=== PATIENT | male | born 1945 | race Caucasian/White ===

== ENCOUNTER 2024-06-17 14:53 | Emergency (ER) | payer OTHER, MEDICARE, SELFPAY ==
[2024-06-17 14:56] VITALS: BP 171/98
[2024-06-17 15:27] VITALS: BP 137/92
[2024-06-17 15:46] LABS: ALT (SGPT) 26 U/L (0-50); AST (SGOT) 41 U/L (17-59); Albumin 4.7 g/dl (3.5-5.0); Alkaline Phosphatase 87 U/L (38-126); Blood Urea Nitrogen 17 mg/dl (9-20); Calcium 9.3 mg/dl (8.4-10.2); Carbon Dioxide 29 mmol/L (22-30); Chloride 97 mmol/L (98-107); Glucose 156 mg/dl (70-99); Lipase 43 U/L (23-300); Potassium 4.6 mmol/L (3.5-5.1); Sodium 137 mmol/L (135-145); Total Bilirubin 0.6 mg/dl (0.2-1.3); Total Protein 7.8 g/dl (6.3-8.2); eGFR > 60.00
[2024-06-17 15:49] LABS: % Basophils 0.2 % (0-2); % Eosinophils 0.2 % (0-6); % Immature Granulocytes 0.2 % (0-0.5); % Lymphocytes 8.8 % (20.5-51.1); % Monocytes 6.9 % (1.7-9.3); % Neutrophils 83.7 % (42.2-75.2); Absolute Lymphocytes 0.9 10^3/uL (1.2-3.4); Absolute Monocytes 0.7 10^3/uL (0.1-0.6); Absolute Neutrophils 8.3 10^3/uL (1.4-6.5); Hematocrit 42.4 % (39.0-52.0); Mean Corp Hgb Conc. 35.4 g/dL (33.0-37.0); Mean Corpuscular Volume 90.4 fL (80.0-94.0); Mean Platelet Volume 9.4 fL (7.4-10.4); Nucleated Red Blood Cells % 0 % (-); Platelet Count 275 10^3/uL (130-400); Red Blood Cell Count 4.69 10^6/uL (4.70-6.10); Red Cell Dist. Width 13.1 % (11.5-14.5); White Blood Cell Count 9.9 10^3/uL (4.8-10.8)
--- NOTE | 2024-06-17 15:58 | ED.GENMED ---
History of Present Illness
General
Chief Complaint: Abdominal Pain
Source: patient and spouse
Exam Limitations: none
Time Seen by Provider: 06/17/24 15:19
Nursing documentation reviewed up to this point in time: agreed with
History of Present Illness
History of Present Illness:
79-year-old male with past medical history of colon cancer status post right-sided partial colectomy at [facility] 4 years presenting to the emergency department today with concerns of left-sided abdominal pain with associated nausea vomiting chills.
Does have a known large hernia to the left side of abdominal wall that he claims felt hardened yesterday. Does have intermittent pain to the area but yesterday's was ongoing since yesterday evening. Patient chills denies any specific objective
fevers.
Past History
Past History
ED Past Medical History: None
ED Past Surgical History: None
Review of Systems
Review of Systems
Allergies reviewed?: Yes
All Other Systems: ROS reviewed and negative except as documented in HPI and ROS
Phy Exam
Physical Exam
Physical Exam:
GENERAL: Alert , in no apparent distress
EYE: pupils equal and reactive
NECK: Supple, no significant adenopathy.
ENT: o/p clr, mmm.
CARDIAC: Regular rate and rhythm .
LUNGS: Clear breath sounds bilaterally, no acute respiratory distress, no wheezes/rales/rhonchi
ABDOMEN: Soft, without focal tenderness, no r/g, no cvat
NEUROLOGICAL: Alert and oriented, no focal neuro deficits
SKIN: Warm and dry, skin intact.
MUSCULOSKELETAL: No edema, well perfused.
PSYCH: Normal and appropriate interaction.
Course
Orders/Labs/Results
Orders:
Orders
06/17/24 15:21
IV Insert/Care/Rem.- Treatment PRN
06/17/24 15:26
Complete Blood Count/With Diff Urgent
Comprehensive Metabolic Panel Urgent
Lipase Urgent
Urinalysis Reflex To Culture Urgent
Date Specimen was Collected: 06/17/24
Time Specimen was Collected: 15:21
Urine Microscopic Reflex Cult Urgent
06/17/24 15:36
CT Abd/pel W Iv And Oral Contr Urgent
Comment:
Reason For Exam: right colectomy, abd pain, anterior left abd herni
0.9% Sodium Chloride 1000 ml [Nss] 1,000 ml IV BOLUS
Iohexol [Omnipaque] See Protocol PO NOW STA
06/17/24 15:41
EKG [Electrocardiogram (*1)] Urgent
Reason for Study: Abdominal Pain
06/17/24 15:42
EKG- Treatment ONCE
06/17/24 21:19
Lactic Acid Urgent
Abnormal Lab Results
06/17/24
15:26
RBC 4.69 L 10^6/uL
(4.70-6.10)
MCH 32.0 H pg
(27.0-31.0)
Absolute Neuts (auto) 8.3 H 10^3/uL
(1.4-6.5)
Absolute Lymphs (auto) 0.9 L 10^3/uL
(1.2-3.4)
Absolute Monos (auto) 0.7 H 10^3/uL
(0.1-0.6)
Neutrophils % 83.7 H %
(42.2-75.2)
Lymphocytes % 8.8 L %
(20.5-51.1)
Chloride 97 L mmol/L
(98-107)
Glucose 156 H mg/dl
(70-99)
Urine Ketones 1+ A
(Negative)
Ur Occult Blood Reflex 1+ A
(Negative)
Urine RBC 7-10 A /HPF
(0-2)
Urine Bacteria (Reflex) Few A
(Negative)
06/17/24 15:26
06/17/24 15:26
Vital Signs
Initial and Last Documented VS:
Initial Vital Signs
Temp Pulse Resp BP Pulse Ox
98.5 F 114 18 171/98 98
06/17/24 14:56 06/17/24 14:56 06/17/24 14:56 06/17/24 14:56 06/17/24 14:56
Last Documented Vital Signs
Temp Pulse Resp BP Pulse Ox
98.7 F 95 18 133/90 95
06/17/24 21:24 06/17/24 21:24 06/17/24 21:24 06/17/24 21:00 06/17/24 21:24
MDM/Problems Addressed
MDM/Problems Addressed:
79-year-old male presenting to the emergency department today with concerns of nausea vomiting abdominal fullness mainly to left side of the abdomen had a colon resection 4 years ago at [facility] due to colon cancer. Does have an ongoing hernia to
the left side of the abdomen. Currently no tenderness palpation throughout the abdomen. Patient does have reducible ventral hernia. CT scan performed that showed high-grade bowel obstruction. Initially case discussed with our colorectal team
they recommended transfer. Case discussed with [facility] for a previous surgery who accepted the case to their care. Stable throughout ER stay.
*Critical Care Note
Total Time (30-74mins, 75-104mins- exclusive of procedures): Not Applicable
ED Attending Note
-
Portions of this chart may have been created with voice recognition software.� Occasional wrong word or��sound alike� substitutions may have occurred due to the inherent limitations of voice recognition software.
Discharge Plan
Departure
Patient Disposition: Acute Care Hospital
Date of Disposition: 06/17/24
Time of Disposition: 21:30
Discharge Problem:
SBO (small bowel obstruction)
Prescriptions:
No Action
acetaminophen [Tylenol] 325 mg Tablet
650 mg PO Q6HPRN PRN (Reason: mild pain)
Referrals:
Jerrod Skinner I., DO [Family Provider] -
Hospital Transfer
Other hospital: [facility]
I certify that the patient requires transfer: Yes
Discussed case with accepting physician: Marilee Card
Reason for transfer: availability of service
Interventions
Interventions:
*Risk Screen - Suicide Last Done: 06/17/24 15:01
*General Assessment Last Done: 06/17/24 15:01
*Neglect/Abuse Screening Last Done: 06/17/24 15:01
ED- Fall Risk Assessment Last Done: 06/17/24 15:18
*ED COVID-19 Vaccine History Last Done: 06/17/24 15:01
*Nursing Disposition Last Done: 06/17/24 22:49
[facility]-Alpec[facility]-Eyzdqcgvqd Assessment Last Done: 06/17/24 15:18
Discharge Date and Time
Discharge Date/Time: 06/17/24 22:51
Print Language: KOREAN
[2024-06-17] MEDS: NSS 1000 IV (16:16)
[2024-06-17] MEDS: OMNIPAQUE 50 ML PO (16:17)
[2024-06-17 18:11] VITALS: BMI 26.1
[2024-06-17 18:30] LABS: Urine Albumin Trace (Neg - Trace); Urine Bilirubin Negative (Negative); Urine Character Clear (Clear); Urine Color Yellow; Urine Glucose Negative (Negative); Urine Ketone 1+ (Negative); Urine Leukocyte Negative (Negative); Urine Nitrite Negative (Negative); Urine Occult Blood 1+ (Negative); Urine Urobilinogen Negative (Neg - 1+)
[2024-06-17 18:43] LABS: Urine Squamous Cell 0-2 /LPF (Few)
[2024-06-17 18:44] LABS: Urine Bacteria Few (Negative); Urine White Cell 0-2 /HPF (0-5)
[2024-06-17 19:12] VITALS: BP 158/90
[2024-06-17 20:00] VITALS: BP 147/92
[2024-06-17 21:00] VITALS: BP 133/90
[2024-06-17 21:41] LABS: Lactic Acid 0.7 mmol/L (0.7-2.0)
== END 2024-06-17 22:51 | disposition short-term general hospital (02) ==
LOC: EMR 14:53
PROVIDERS: Physician Assistant; EMERGENCY PHYSICIAN Emergency Medicine; FAMILY PHYSICIAN Internal Medicine
DX: K43.6 Other and unspecified ventral hernia with obstruction, without gangrene (principal); Z85.038 Personal history of other malignant neoplasm of large intestine
CPT/HCPCS: 99284; 96360; 74177; 80053; 81003; 81015; 83605; 83690; 85025; 93005; Q9967